=== PATIENT | female | born 1955 | race Caucasian/White ===

== ENCOUNTER 2019-12-24 10:47 | Outpatient (CLI) | payer OTHER, SELFPAY ==
--- NOTE | 2019-12-24 10:57 | XR_ITS ---
WS: [id number] RIGHT SHOULDER: 2 VIEW(S) TECHNIQUE: Internal and external rotation. HISTORY: Tach and shoulder pain. COMPARISON: None available. No fracture or dislocation or soft tissue abnormality. Tiny cortical defect in the superior humeral head. XR/XR shoulder RT min 2V* [id number] IMPRESSION: Tiny cortical defect superior humeral head may be degenerative. Otherwise negat ulices.
--- NOTE | 2019-12-24 10:57 | XR_ITS ---
WS: [id number] LUMBAR SPINE: 3 VIEWS TECHNIQUE: AP, lateral and L5-S1 spot. HISTORY: BACK/R SHOULDER PAIN COMPARISON: None available. Posterior lumbar alignment is normal. Mild LEFT convex curvature of the lumbar spine could be positio nal. No fractures. Small endplate osteophytes and hypertrophic bone formation at all levels. Mild fac et joint arthropathy at L4-5 and L5-S1. Mild loss of disc space height. SI joints are symmetric bilaterally. No soft tissue abnormalities. Prior cholecystectomy. Mild atherosclerosis aorta. XR/XR lumbar spine 2-3V* [id number] IMPRESSION: 1. Mild LEFT convex curvature lumbar spine could be positional. 2. Mild lumbar spondylosis. 3. Prior cholecystectomy.
== END 2019-12-24 10:48 | disposition home or self-care (01) ==
LOC: RAD 10:52
PROVIDERS: PCP Family Medicine; Visit Provider Physical Medicine & Rehabilitation
DX: Z02.71 Encounter for disability determination (principal); M25.511 Pain in right shoulder; M54.5 Low back pain; M47.896 Other spondylosis, lumbar region; Z90.49 Acquired absence of other specified parts of digestive tract
CPT/HCPCS: 72100; 73030